=== PATIENT | female | born 1945 | race Caucasian/White ===

== ENCOUNTER → 2018-06-16 20:10 | Outpatient (REF) | payer OTHER, SELFPAY | LOC: LBN 20:10 | PROVIDERS: PCP Family Medicine; Visit Provider Internal Medicine | DX: R30.0 Dysuria (principal) | CPT/HCPCS: 87077; 87086; 87186 ==

== ENCOUNTER 2018-10-26 01:16 | Outpatient (CLI) | payer BC, MEDICARE, SELFPAY ==
--- NOTE | 2018-10-26 12:00 | DI.MAMMO_ITS ---
SYMPTOM/DIAGNOSIS: SCREENING, Z12.31 MAMMOGRAMS: Mammograms were interpreted according to the usual protocol including computer analysis with CAD system, tomosynthesis and C view imaging. Comparison with prior examinations. Breast density C. No suspicious masses or microcalcifications are seen. There is no definite evidence of malignancy. IMPRESSION: Negative mammogram. Routine screening is recommended. Category I. MQSA ASSESSMENT OF FINDINGS: Negative. Category 1. Patient will receive a letter notifying them of these results. Bi-RADS category C. The breasts are heterogeneously dense, which may obscure small masses.
[2018-10-26 13:32] LABS: TSH (W/Ref FT4) 0.55 uIU/mL (0.358-3.74)
== END 2018-10-26 01:36 ==
PROVIDERS: PCP Family Medicine; Visit Provider Family Medicine
DX: E03.9 Hypothyroidism, unspecified; Z12.31 Encounter for screening mammogram for malignant neoplasm of breast
CPT/HCPCS: 36415; 77063; 77067; 84443

== ENCOUNTER 2019-03-30 13:13 | Outpatient (REF) | payer BC, MEDICARE, SELFPAY | END 2019-03-30 13:33 | LOC: LBN 13:13 | PROVIDERS: PCP Family Medicine; Visit Provider Internal Medicine | DX: J34.0 Abscess, furuncle and carbuncle of nose; T14.8XXA Other injury of unspecified body region, initial encounter | CPT/HCPCS: 87070; 87205 ==

== ENCOUNTER 2019-04-13 09:24 | Outpatient (CLI) | payer BC, MEDICARE, SELFPAY ==
--- NOTE | 2019-04-13 08:15 | DI.RAD_ITS ---
SYMPTOM/DIAGNOSIS: RT ANKLE SWELLING, M25.471, EFFUSION RT ANKLE RIGHT ANKLE: Three views were obtained. The ankle mortise appears well maintained. No significant bony or soft tissue abnormality is seen.
== END 2019-04-13 09:44 ==
PROVIDERS: PCP Family Medicine
DX: M25.471 Effusion, right ankle (principal)
CPT/HCPCS: 73610

== ENCOUNTER 2019-05-23 07:27 | Outpatient (CLI) | payer BC, MEDICARE, SELFPAY ==
[2019-05-23 14:04] LABS: TSH (W/Ref FT4) 0.43 uIU/mL (0.36-3.74)
== END 2019-05-23 07:47 ==
PROVIDERS: Visit Provider Internal Medicine
DX: E03.9 Hypothyroidism, unspecified (principal)
CPT/HCPCS: 36415; 84443

== ENCOUNTER 2019-07-11 11:33 | Outpatient (RCR) | payer BC, MEDICARE, SELFPAY ==
[2019-07-11 12:03] LABS: TSH (W/Ref FT4) 1.46 uIU/mL (0.36-3.74)
== END 2019-07-18 23:59 | disposition home or self-care (01) ==
LOC: INF 11:33
PROVIDERS: Visit Provider Family Medicine
DX: E03.9 Hypothyroidism, unspecified (principal)
CPT/HCPCS: 36415; 99195; 84443

== ENCOUNTER 2019-09-05 19:55 | Outpatient (REF) | payer BC, MEDICARE, SELFPAY ==
[2019-09-05 19:40] LABS: Bilirubin Negative (Negative); Blood Negative (Negative); Clarity Clear (Clear); Glucose Negative (Negative); Ketones Negative (Negative); Leukocyte Esterase Trace (Negative); Nitrite Positive (Negative); Specific Gravity 1.015 (1.005-1.025); Urobilinogen 0.2 EU/dL (Up TO 0.2)
[2019-09-05 19:55] LABS: Bacteria Few HPF (Negative); C & S Indicated? C&S Done As Ordered; Crystals Negative HPF (Negative); Epithelial Cells Negative HPF (Negative); Mucus Negative (Negative); RBC 0-2 HPF (0-2); WBC 20-50 HPF (0-5)
== END 2019-09-05 20:15 ==
LOC: NCHCN 19:55
PROVIDERS: Visit Provider Family Medicine
DX: N39.0 Urinary tract infection, site not specified (principal)
CPT/HCPCS: 87077; 81003; 81015; 87086; 87186

== ENCOUNTER 2019-09-14 11:11 | Outpatient (CLI) | payer BC, MEDICARE, SELFPAY ==
[2019-09-14 15:34] LABS: HCT 39.7 % (36.0-46.0); HGB 13.1 g/dL (12.0-15.5); Mean Corpuscular Hemoglobin 29.8 pg (27.0-33.0); Mean Corpuscular Volume 90.4 fL (80-95); Mean Platelet Volume 11.1 fL (8.0-11.0); Platelet Count 178 x1000/uL (130-400); RBC 4.39 m/cumm (4.00-5.20); RBC Distribution Width 12.5 % (11.7-14.6); White Blood Cell Count 8.69 k/cumm (4.4-10.8)
[2019-09-14 16:10] LABS: TSH (W/Ref FT4) 1.43 uIU/mL (0.36-3.74)
== END 2019-09-14 11:31 ==
DX: A92.30 West Nile virus infection, unspecified (principal); G25.81 Restless legs syndrome; G47.00 Insomnia, unspecified; E03.9 Hypothyroidism, unspecified
CPT/HCPCS: 36415; 85027; 84443

== ENCOUNTER 2019-11-28 01:24 | Outpatient (CLI) | payer BC, MEDICARE, SELFPAY ==
--- NOTE | 2019-11-28 10:33 | DI.MAMMO_ITS ---
EXAM: MAMMO SCREENING CLINICAL HISTORY: SCREENING Z12.39 TECHNIQUE: Mammograms were interpreted according to the usual protocol including computer analysis w [employer] CAD system, tomosynthesis and C-view imaging. COMPARISON: 2010 through 2018 FINDINGS: The breasts are composed of heterogeneously dense fibroglandular densities, Breast Density category C . Left breast: No suspicious masses or suspicious microcalcifications are seen. No skin thickening or abnormal axillary lymph nodes are seen. There has been no significant change from prior exams. Right breast: There is a circumscribed area of nodularity seen in the central subareolar region of th e right breast. Spot compression views and ultrasound are requested for further evaluation. No susp icious calcifications, skin thickening or axillary adenopathy is seen. IMPRESSION: Left breast: BIRADS Category 1, negative mammogram. Yearly screening mammography is recommended. Right breast: BI-RADS Cat 0 - Assessment Incomplete: Need additional imaging evaluation BREAST DENSITY: The mammogram demonstrates the patient's breast tissue is dense. Dense breast tissue is very common and is not abnormal but dense breast tissue can make it harder to find cancer on a ma mmogram. Also, dense breast tissue may increase breast cancer risk. This information about the result of the mammogram report was provided to the patient to raise their awareness. Use this report when y ou speak with the patient about their risks for breast cancer, which includes their family history. A t that time, you may recommend additional screening tests (Ultrasound or MRI) as they might be useful based on their risk. A negative radiographic report should not delay biopsy if a dominant or clinically suspicious mass is present. Up to ten percent of cancers are not identified on mammography. A negative report may reinforce clinical impression. Adenosis and dense breasts may obscure an underlying neoplasm. False positive reports average 6 to 10%.
== END 2019-11-28 01:44 ==
PROVIDERS: PCP Family Medicine; Visit Provider Family Medicine
DX: Z12.31 Encounter for screening mammogram for malignant neoplasm of breast (principal); R92.8 Other abnormal and inconclusive findings on diagnostic imaging of breast
CPT/HCPCS: 77063; 77067

== ENCOUNTER 2019-11-30 01:18 | Outpatient (CLI) | payer BC, MEDICARE, SELFPAY ==
--- NOTE | 2019-11-30 | DI.US_ITS ---
EXAM: MG MAMMO SCREEN CALL BACK UNI AND US BREAST RT LIMITED CLINICAL HISTORY: CIRCUMSCRIBED AREA OF NODULARITY SEEN IN CENTRAL SUBAREOLAR REGION RT BREAST TECHNIQUE: Ultrasound performed using standard protocol. COMPARISON: Mammogram of November, and mammograms back to 2010. FINDINGS: Additional views of the right breast: Spot-compression views with tomography were performed of the up per and outer aspect of the right breast. There is a persistent circumscribed nodule measuring 11 mil limeters in greatest dimension. Right breast ultrasound: Right breast ultrasound shows a cyst measuring 11 x 11 x 6 millimeters in th e subareolar tissue. There is a question of communication with a duct versus a mildly dilated adjacen t duct. A few other smaller cysts are noted in the subareolar region. No suspicious masses are seen. IMPRESSION: BI-RADS Cat 2-negative mammogram and ultrasound with benign findings of a cyst corresponding to the palpable abnormality. Yearly screening mammography is recommended. Breast Density - Category C - Heterogeneously dense
== END 2019-11-30 01:38 ==
PROVIDERS: PCP Family Medicine; Visit Provider Family Medicine
DX: Z12.31 Encounter for screening mammogram for malignant neoplasm of breast (principal); R92.8 Other abnormal and inconclusive findings on diagnostic imaging of breast; N60.01 Solitary cyst of right breast
CPT/HCPCS: 76642; 77063; 77067

== ENCOUNTER 2020-03-15 03:31 | Outpatient (CLI) | payer BC, MEDICARE, SELFPAY ==
[2020-03-15 12:25] LABS: TSH (W/Ref FT4) 2.53 uIU/mL (0.36-3.74)
== END 2020-03-15 03:51 ==
PROVIDERS: PCP Family Medicine; Visit Provider Family Medicine
DX: E03.9 Hypothyroidism, unspecified (principal)
CPT/HCPCS: 36415; 84443

== ENCOUNTER 2020-05-16 03:19 | Outpatient (CLI) | payer BC, MEDICARE, SELFPAY ==
[2020-05-16 11:04] LABS: Bilirubin Negative (Negative); Blood Negative (Negative); Clarity Clear (Clear); Glucose Negative (Negative); Ketones Negative (Negative); Leukocyte Esterase Negative (Negative); Nitrite Negative (Negative); Urobilinogen 0.2 EU/dL (Up TO 0.2); pH 5.5 (5-8)
== END 2020-05-16 03:39 ==
PROVIDERS: PCP Family Medicine; Visit Provider Family Medicine
DX: R35.0 Frequency of micturition (principal)
CPT/HCPCS: 81003

== ENCOUNTER 2020-11-07 04:09 | Outpatient (CLI) | payer BC, MEDICARE, SELFPAY ==
[2020-11-07 10:27] LABS: Hemoglobin A1C 5.7 % (<5.7)
[2020-11-07 11:06] LABS: ALT 37 U/L (14-59); AST 20 U/L (15-37); Albumin 3.9 g/dL (3.4-5.0); Alkaline Phosphatase 83 U/L (46-116); Anion Gap 6.1 mmol/L (3-11); BUN 20 mg/dL (7-18); Bilirubin, Total 0.3 mg/dL (0.2-1.0); CO2 28.9 mmol/L (21.0-32.0); CREATININE 1.08 mg/dL (0.55-1.02); Calcium 9.2 mg/dL (8.5-10.1); Chloride 105 mmol/L (98-107); Estimated GFR 49.73 (mL/min/1.73m2); Glucose 92 mg/dL (74-106); Potassium 4.5 mmol/L (3.5-5.1); Sodium 140 mmol/L (136-145); TSH (W/Ref FT4) 4.39 uIU/mL (0.36-3.74)
[2020-11-07 11:23] LABS: FREE T4 1.15 ng/dL (0.76-1.46)
== END 2020-11-07 04:29 ==
PROVIDERS: PCP Family Medicine; Visit Provider Family Medicine
DX: E03.9 Hypothyroidism, unspecified (principal); E11.9 Type 2 diabetes mellitus without complications; R53.83 Other fatigue
CPT/HCPCS: 36415; 80053; 83036; 84439; 84443

== ENCOUNTER 2020-11-22 03:55 | Outpatient (CLI) | payer BC, MEDICARE, SELFPAY ==
[2020-11-22 08:09] LABS: Iron 75 ug/dL (50-170); Total Iron Binding Capacity 315 ug/dL (250-450); Transferrin Sat 24 % (15-50)
[2020-11-22 08:36] LABS: Ferritin 176 ng/mL (8-252)
== END 2020-11-22 03:56 | disposition home or self-care (01) ==
LOC: LBO 03:55
PROVIDERS: PCP Family Medicine; Visit Provider Nurse Practitioner
DX: D50.9 Iron deficiency anemia, unspecified (principal)
CPT/HCPCS: 36415; 82728; 83540; 83550